=== PATIENT | female | born 1970 | race Two or more races ===

== ENCOUNTER 2017-11-14 15:12 | Emergency (ER) | payer OTHER ==
[~2017-11-14] VITALS: Ht 152.4 cm; Wt 73.9 kg
[~2017-11-14 15:12] MED LIST: CIPRO500 MG PO; FLAGYL500MG PO; Intestinex CAP PO; OXYC1TAB9 PO; PEPCID20 MG PO; PRISTIQ ER50 MG PO; SYNTHROID88 MCG PO; WELLBUTRIN XL300 MG PO; ZANTAC150 M3 PO
== END 2017-11-14 23:56 | disposition home or self-care (01) ==
LOC: ER 15:12
DX: R10.84 Generalized abdominal pain (principal)

== ENCOUNTER 2019-06-05 00:28 | Inpatient (IN) | payer OTHER ==
[~2019-06-05] VITALS: Wt 5.0 kg
--- NOTE | 2019-06-05 00:31 | NUR ---
PACIENTE QUE LLEGA ALERTA CONSCIENTE Y ORIENTADA X3 PRESENTANDO BUEN PATRON RESPIRATORIO. EN COMPANIA DE PERSONAL DE EMERGENCIAS MEDICAS Y FAMILIARES DESDE EL [facility]. PACIENTE ES TRANSFERIDA A ESTA INSTITUCION POR OBSTRUCCION INTESTINAL. PTE CON NGT EN FOSA NASAL DERECHA. CANALIZADA EN BRAZO MIRIAM POR EL [facility] DE [facility].
[2019-06-05] MEDS ORDERED: CYMBALTA20 MG (00:36)
[2019-06-05] MEDS ORDERED: ELIQUIS5 MG (00:36)
[2019-06-05] MEDS ORDERED: ORAPRED ODT10 MG (00:38)
--- NOTE | 2019-06-05 01:20 | NUR ---
SE ORIENTA AL PACIENTE SOBRE EL TX. SE EXTRAEN MUESTRAS DE ELIF BAJO MEDIDAS ASEPTICAS SON ROTULADAS Y ENVIADAS AL LABORATORIO. PTE PREVIAMENTE CANALIZADAEN ANTEBRAZO MIRIAM PATENTE. SE COLOCA IVFLUIDS Y SE ADMINISTRAN MEDICAMENTO GUERO ORDEN MEDICA. PTE CON NGT COLOCADO EN EL [facility]. SE CONECTA A SUCCION INTERMITENTE. SE MANTIENE PACIENTE BAJO OBSERVACION.
--- NOTE | 2019-06-05 01:51 | NUR ---
SE ORIENTA PTE POR RN OCASIO QUIEN ZORAIDA MUESTRAS DE ELIF, CANALIZA PTE, ADMINISTRA MEDICAMENTOS ORDENADOS Y COLOCA NGT A SUCCION INTERMITENTE GUERO ORDEN MEDICA.
--- NOTE | 2019-06-05 08:06 | NUR ---
PACIENTE ALERTA Y ORIENTADA X3. EN POSICION SEMI-SENTADA CON BARANDAS ELEVADAS. IV FLUID PATENTE Y ANAMARIA DE EDEMA Y ERITEMA. PACIENTE CON TUBO NASOGASTRICO A SUCCION INTERMITENTE BAJA DRENANDO LIQUIDO COLOR MOISES. PACIENTE NPO AL MOMENTO Y CONSULTADA CON DR. BRIZUELA. SE MANTIENE BAJO OBSERVACION POR CAMBIOS SIGNIFICATIVOS.
== END 2019-06-07 14:00 | disposition home or self-care (01) | DRG 389 ==
LOC: ER 00:28 → SURG 12:40 → SEC-K 14:38 → SURG 06-06 01:17
PROVIDERS: ADMIT Surgery
DX: K56.690 Other partial intestinal obstruction (principal); C18.2 Malignant neoplasm of ascending colon; C78.6 Secondary malignant neoplasm of retroperitoneum and peritoneum; E86.0 Dehydration; E03.8 Other specified hypothyroidism; Z88.0 Allergy status to penicillin; Z79.01 Long term (current) use of anticoagulants; Z93.2 Ileostomy status

== ENCOUNTER 2019-06-19 12:10 | Inpatient (IN) | payer OTHER ==
[~2019-06-19] VITALS: Ht 152.4 cm; Wt 71.2 kg
[~2019-06-19 12:10] MED LIST changes: +CYMBALTA20 MG; +ELIQUIS5 MG; +ORAPRED ODT10 MG
[2019-06-19] MEDS ORDERED: SYNTHROID100 MCG PO (12:36)
[2019-06-19] MEDS ORDERED: [UNRECOGNIZED DRUG - OTHER] PO (12:38)
[2019-06-19] MEDS ORDERED: INTESTINEX680 M1 PO (12:38)
--- NOTE | 2019-06-19 14:18 | NUR ---
SE OREINTA PTE SOBRE TRATAMIENTO. SE CANALIZA PERIFERALMENTE BAJO MEDIDAS ASEPTICAS POR RN GELACIO QUIENA DMINISTRA MEDICAMENTOS ORDENADOS. PTE PENDIENTE A RE-EVALAUCION POR MEDICO DE TURNO.
--- NOTE | 2019-06-19 14:31 | NUR ---
SE RECIBE PACIENTE ALERTA Y ORIENTADA X3, CON BUEN PATRON RESPIRATORIO Y SIGNOS VITALES ESTABLES, REFIERE IVORY DOLOR EN EL ABDOMEN, ABDOMEN INFLAMADO Y NO ESTAR EVACUANDO POR LA ILEOSTOMIA. SE PEDRO EN CAMA HASTA SER EVALUADA POR
--- NOTE | 2019-06-19 15:58 | NUR ---
SE RECIBE PTE ALERTA Y ORIENTADA X3 EN CAMA CON BARANDAS ELEVADAS. SE RECIBE PTE CANALIZADA AREA ANAMARIA DE EDEMA Y DE ENROJECIMIENTO. PTE EN ESPERA DE CT GUERO ORDEN MEDICA. PTE EN ESPERA DE RE EVALUACION MEDICA.
[2019-06-22] MEDS ORDERED: MIRTAZAPINE7.5 MG PO (16:08)
[2019-07-02] MEDS ORDERED: PROTONIX40 MG PO (08:33)
[2019-07-02] MEDS ORDERED: FENTANYL1 EAC4 TD (08:33)
[2019-07-02] MEDS ORDERED: INTESTINEX680 M1 PO (08:33)
[2019-07-02] MEDS ORDERED: ZOFRAN4 MG PO (08:34)
== END 2019-07-02 12:04 | disposition home or self-care (01) | DRG 389 ==
LOC: ER 12:10 → SURG 21:38 → SEC-K 22:07 → SURH 22:13
PROVIDERS: ADMIT Surgery
PROC: BW21ZZZ Computerized Tomography (CT Scan) of Abdomen and Pelvis (ICD-10-PCS; 2019-06-19)
PROC: 8E0ZXY6 Isolation (ICD-10-PCS; 2019-06-20)
PROC: 0DH67UZ Insertion of Feeding Device into Stomach, Via Natural or Artificial Opening (ICD-10-PCS; 2019-06-21)
PROC: 3E0G76Z Introduction of Nutritional Substance into Upper GI, Via Natural or Artificial Opening (ICD-10-PCS; 2019-06-21)
PROC: 02HV33Z Insertion of Infusion Device into Superior Vena Cava, Percutaneous Approach (ICD-10-PCS; 2019-06-21)
PROC: 0DJD8ZZ Inspection of Lower Intestinal Tract, Via Natural or Artificial Opening Endoscopic (ICD-10-PCS; principal; 2019-06-22)
PROC: BW21YZZ Computerized Tomography (CT Scan) of Abdomen and Pelvis using Other Contrast (ICD-10-PCS; 2019-06-23)
PROC: 0DB28ZX Excision of Middle Esophagus, Via Natural or Artificial Opening Endoscopic, Diagnostic (ICD-10-PCS; 2019-06-30)
PROC: 0DB78ZX Excision of Stomach, Pylorus, Via Natural or Artificial Opening Endoscopic, Diagnostic (ICD-10-PCS; 2019-06-30)
DX: K56.51 Intestinal adhesions [bands], with partial obstruction (principal); C20 Malignant neoplasm of rectum; E44.0 Moderate protein-calorie malnutrition; I82.4Z3 Acute embolism and thrombosis of unspecified deep veins of distal lower extremity, bilateral; J98.11 Atelectasis; C78.6 Secondary malignant neoplasm of retroperitoneum and peritoneum; K29.40 Chronic atrophic gastritis without bleeding; E03.8 Other specified hypothyroidism; Z93.2 Ileostomy status; Z79.01 Long term (current) use of anticoagulants; K20.8 Other esophagitis

== ENCOUNTER 2020-10-24 07:50 | Day surgery (SDC) | payer OTHER ==
[~2020-10-24 07:50] MED LIST changes: +FENTANYL1 EAC4 TD; +INTESTINEX680 M1 PO; +MIRTAZAPINE7.5 MG PO; +PROTONIX40 MG PO; +SYNTHROID100 MCG PO; +ZOFRAN4 MG PO; +[UNRECOGNIZED DRUG - OTHER] PO
== END 2020-10-24 11:30 | disposition home or self-care (01) ==
LOC: AMB-ENDOS 07:50
PROVIDERS: ATTEND Surgery
DX: K62.89 Other specified diseases of anus and rectum (principal); Z20.828 Contact with and (suspected) exposure to other viral communicable diseases

== ENCOUNTER 2021-03-19 11:00 | Inpatient (IN) | payer OTHER ==
[~2021-03-19] VITALS: Ht 152.4 cm; Wt 82.6 kg
[2021-03-19] MEDS ORDERED: LEVOXYL112 MCG PO (13:08)
[2021-03-19] MEDS ORDERED: ELIQUIS5 MG PO (13:10)
[2021-03-19] MEDS ORDERED: CYMBALTA30 MG PO (13:10)
[2021-03-19] MEDS ORDERED: PEPCID AC20 MG PO (13:10)
[2021-03-26] MEDS ORDERED: CLONAZEPAM1 MG (10:31)
[2021-03-27] MEDS ORDERED: ULTRACET PO (15:15)
== END 2021-03-27 15:57 | disposition home or self-care (01) | DRG 845 ==
LOC: O/R 11:00 → SURG 03-26 08:15
PROVIDERS: ADMIT Surgery; ATTEND Surgery
PROC: 0DBW4ZX Excision of Peritoneum, Percutaneous Endoscopic Approach, Diagnostic (ICD-10-PCS; principal; 2021-03-26 09:30)
DX: C80.0 Disseminated malignant neoplasm, unspecified (principal)